=== PATIENT | male | born 1965 | race Hispanic/Latino ===

== ENCOUNTER 2017-03-29 19:22 | Emergency (ER) | payer SELFPAY ==
--- NOTE | 2017-03-29 20:29 | XRay Report ---
FINAL REPORT EXAM: XR CHEST ROUTINE 2V HISTORY: fall COMPARISON: None available. FINDINGS:: Frontal and lateral views of the chest obtained. Cardiac silhouette is within normal limits. No focal consolidation or effusion. No pneumothorax. Visualized bony thorax is grossly intact. IMPRESSION:: No acute findings.
--- NOTE | 2017-03-30 00:55 | Emergency Department Report ---
ED Chest Pain HPI - General Chief Complaint: Chest Pain Stated Complaint: CHEST PAIN Time Seen by Provider: 03/30/17 00:47 Source: patient Mode of arrival: Ambulatory Limitations: No Limitations - History of Present Illness Initial Comments: 51-year-old male presenting to the ED complaining of chest wall pain. Patient states inciting factor was that he fell off his tractor trailer landing on the left side of his body injuring his chest. Patient denies hitting his head, or neck pain. Patient states he is able to get up afterwards and although he had chest pain he still had normal breathing. Patient states currently his chest pain is located on the left side of his chest, nonradiating, worse with inspiration, improves with shallow breathing. The patient has no other complaints. MD Complaint: chest pain -: Sudden Pain Location: left chest Pain Radiation: none Severity scale (0 -10): 6 Quality: sharp Consistency: constant Improves With: remaining still Worsens With: inspiration - Related Data Previous Rx's Medication Instructions Recorded Last Taken Type HYDROcodone/APAP 5-325 [Bradley 1 each PO Q6HR PRN #10 tablet 03/30/17 Unknown Rx 5/325] Ibuprofen [Motrin 800 MG tab] 800 mg PO Q8HR PRN #20 tablet 03/30/17 Unknown Rx Allergies Allergy/AdvReac Type Severity Reaction Status Date / Time No Known Allergies Allergy Unverified 03/29/17 19:41 Heart Score - HEART Score History: Slightly suspicious (please ignore this HEART score, this was done to be able to sign chart. This HEART score is not reflective of patient. Meri Franksderick Barton) EKG: Normal Age: 45-65 Risk factors: No known risk factors Troponin: < normal limit HEART Score: 1 - Critical Actions Critical Actions: 0-3 pts:0.9-1.7%risk of adverse cardiac event.Candidate for discharge ED Review of Systems ROS: Stated complaint: CHEST PAIN Other details as noted in HPI Constitutional: denies: chills, fever Eyes: denies: eye pain, eye discharge, vision change ENT: denies: ear pain, throat pain Respiratory: denies: cough, shortness of breath, wheezing Cardiovascular: chest pain. denies: palpitations Endocrine: no symptoms reported Gastrointestinal: denies: abdominal pain, nausea, diarrhea Genitourinary: denies: urgency, dysuria Musculoskeletal: denies: back pain, joint swelling, arthralgia Skin: denies: rash, lesions Neurological: denies: headache, weakness, paresthesias Psychiatric: denies: anxiety, depression Hematological/Lymphatic: denies: easy bleeding, easy bruising ED Past Medical Hx - Past Medical History Previous Medical History?: No - Surgical History Past Surgical History?: No - Social History Smoking Status: Current Every Day Smoker Substance Use Type: None - Medications Home Medications: Home Medications Medication Instructions Recorded Confirmed Last Taken Type HYDROcodone/APAP 5-325 [Bradley 1 each PO Q6HR PRN #10 tablet 03/30/17 Unknown Rx 5/325] Ibuprofen [Motrin 800 MG tab] 800 mg PO Q8HR PRN #20 tablet 03/30/17 Unknown Rx ED Physical Exam - General Limitations: No Limitations General appearance: alert, in no apparent distress - Head Head exam: Present: atraumatic, normocephalic - Eye Eye exam: Present: normal appearance - ENT ENT exam: Present: mucous membranes moist - Neck Neck exam: Present: normal inspection - Respiratory Respiratory exam: Present: normal lung sounds bilaterally, chest wall tenderness (patient has moderate reproducible left-sided chest wall tenderness to palpation. No ecchymosis or bruising to the chest wall noted.). Absent: respiratory distress, wheezes, rales, rhonchi - Cardiovascular Cardiovascular Exam: Present: regular rate, normal rhythm. Absent: systolic murmur, diastolic murmur, rubs, gallop - GI/Abdominal GI/Abdominal exam: Present: soft, normal bowel sounds - Rectal Rectal exam: Present: deferred - Extremities Exam Extremities exam: Present: normal inspection - Back Exam Back exam: Present: normal inspection - Neurological Exam Neurological exam: Present: alert, oriented X3 - Psychiatric Psychiatric exam: Present: normal affect, normal mood - Skin Skin exam: Present: warm, dry, intact, normal color. Absent: rash ED Course Vital Signs 03/29/17 19:42 Temperature 98.3 F Pulse Rate 78 Respiratory 16 Rate Blood Pressure 121/82 O2 Sat by Pulse 99 Oximetry ED Medical Decision Making - Radiology Data Chest x-ray-no acute findings. Dr Moscoso - Medical Decision Making 51-year-old male presenting to the ED with chest wall contusion status post fall. Patient's x-rays were negative for acute findings. He agrees he is stable discharge home with pain medication. Patient verbalized understanding return precautions. Patient given a copy of his images for PCP follow-up. - Differential Diagnosis pnuemothorax, pulmonary contusion, rib fracture Critical Care Time: No Critical care attestation.: If time is entered above; I have spent that time in minutes in the direct care of this critically ill patient, excluding procedure time. ED Disposition Clinical Impression: Contusion, chest wall Disposition: TO HOME OR SELFCARE Is pt being admited?: No Does the pt Need Aspirin: No Condition: Good Instructions: Contusion in Adults (ED), Chest Pain (ED) Prescriptions: HYDROcodone/APAP 5-325 [Bradley 5/325] 1 each PO Q6HR PRN #10 tablet PRN Reason: Pain Ibuprofen [Motrin 800 MG tab] 800 mg PO Q8HR PRN #20 tablet PRN Reason: Pain Referrals: PRIMARY CARE, [Primary Care Provider] - 3-5 Days SUSAN FRANKEL MD [Staff Physician] - 3-5 Days Forms: Work/School Release Form(ED)
[2017-03-30] MEDS ORDERED: NORCO 10/325 PO ONE (00:59)
[2017-03-30 06:53] VITALS: BP 134/88
== END 2017-03-30 01:59 | disposition home or self-care (01) ==
LOC: ED 19:22
DX: S20.212A Contusion of left front wall of thorax, initial encounter (principal); F17.210 Nicotine dependence, cigarettes, uncomplicated; V89.9XXA Person injured in unspecified vehicle accident, initial encounter; Y93.89 Activity, other specified; Y92.89 Other specified places as the place of occurrence of the external cause; Y99.8 Other external cause status
CPT/HCPCS: 71020; 99283